=== PATIENT | female | born 2000 | race African-American/Black ===

== ENCOUNTER 2020-06-22 23:32 | Emergency (ER) | payer OTHER ==
[~2020-06-22] VITALS: Ht 177.8 cm; Wt 96.6 kg
[2020-06-23] MEDS ORDERED: KETOROLAC 60MG/2ML VIAL IM ONE (00:15)
[2020-06-23] MEDS ORDERED: HYDROCODONE/ACETAMINOPHEN 10/325MG TABLET PO ONE (03:15)
[2020-06-23 03:18] VITALS: BP 119/61
== END 2020-06-23 03:34 | disposition home or self-care (01) ==
LOC: ER 23:32
DX: R07.89 Other chest pain (principal); Z87.19 Personal history of other diseases of the digestive system
CPT/HCPCS: 71045; 81025; 93005; 96372; 99283; J1885